=== PATIENT | female | born 1960 | race Caucasian/White ===

== ENCOUNTER 2023-12-23 19:02 | Emergency (ER) | payer MEDICARE, OTHER, SELFPAY ==
[2023-12-23 19:07] VITALS: BP 172/84; PULSE 93; TEMP 36.8; O2SAT 98; BMI 37.3
--- NOTE | 2023-12-23 19:19 | ED_ITS ---
HPI - Female Genitourinary General Chief complaint: Urogenital-Female Stated complaint: UTI Time Seen by Provider: 12/23/23 19:08 Source: patient Mode of arrival: walk-in Limitations: no limitations History of Present Illness HPI Narrative: 63-year-old female presents to the emergency department for dysuria and frequency and hematuria. It started about 3 hours ago. No back pain fever or vomiting. She has only had 2 UTIs and believes that she has another 1. Related Data Previous Rx's ?Medication ?Instructions ?Recorded cephalexin 500 mg capsule 500 mg PO TID 7 days #21 caps 12/23/23 phenazopyridine 200 mg tablet 200 mg PO Q8H PRN pain #15 tabs 12/23/23 (Pyridium) Allergies Allergy/AdvReac Type Severity Reaction Status Date / Time codeine AdvReac Severe Difficulty Verified 12/23/23 19:13 Breathing Iodinated Contrast Media AdvReac Intermediate Rash Verified 12/23/23 19:13 cefaclor [From Ceclor] AdvReac Mild Rash Verified 12/23/23 19:13 Review of Systems ROS Narrative A ten point review of systems is negative except as noted above. Exam Narrative Exam Narrative: Nurses note and vital signs reviewed and patient is not hypoxic. General: The patient appears well and in no apparent distress. Patient is resting comfortably on cart. Skin: Warm, dry, no pallor noted. There is no rash noted. Head: Normocephalic, atraumatic Eye: Normal conjunctiva, no drainage Ears, Nose, Mouth, and Throat: oral mucosa is moist. Nares patent. Cardiovascular: Regular Rate and Rhythm Respiratory: Patient is in no distress, no accessory muscle use, lungs are clear to auscultation, no wheezing, rales or rhonchi Back: non-tender, no CVA tenderness bilaterally to percussion. GI: Soft and nontender Musculoskeletal: The patient has no evidence of calf tenderness, no pitting edema, symmetrical pulses noted bilaterally Neurological: Awake and alert Psychiatric: Cooperative Constitutional Vital Signs, click to edit/add: Last Vital Signs Temp 98.2 F 12/23/23 19:07 Pulse 93 H 12/23/23 19:07 Resp 20 12/23/23 19:07 BP 172/84 H 12/23/23 19:07 Pulse Ox 98 12/23/23 19:07 O2 Del Method Room Air 04/28/24 19:07 Course Vital Signs Vital signs: Vital Signs Temperature 98.2 F 12/23/23 19:07 Pulse Rate 93 H 12/23/23 19:07 Respiratory Rate 20 12/23/23 19:07 Blood Pressure 172/84 H 12/23/23 19:07 Pulse Oximetry 98 12/23/23 19:07 Oxygen Delivery Method Room Air 12/23/23 19:07 Temperature 98.2 F 12/23/23 19:07 Pulse Rate 93 H 12/23/23 19:07 Respiratory Rate 20 12/23/23 19:07 Blood Pressure 172/84 H 12/23/23 19:07 Pulse Oximetry 98 12/23/23 19:07 Oxygen Delivery Method Room Air 12/23/23 19:07 MDM - Female Genitourinary MDM Narrative Medical decision making narrative: UTI is identified and she started on Keflex and Pyridium here and prescribed the same. Treatment diagnosis and follow-up were discussed with the patient. I have no clinical suspicion of pyelonephritis. Differential Diagnosis Differential diagnosis: Likely urinary tract infection and other (Hematuria, pyelonephritis) Lab Data Attestation: I reviewed the patient's lab results. Labs: Lab Results 12/23/23 Range/Units 19:25 Urine Color Dk. orange (YELLOW) Urine Clarity Clear (CLEAR) Urine pH 5.5 (5.0-9.0) Ur Specific [place] >=1.030 A (1.005-1.025) Urine Protein 100 A (NEG/TRACE) mg/dL Urine Glucose (UA) Negative (NEGATIVE) mg/dL Urine Ketones Negative (NEGATIVE) mg/dL Urine Occult Blood Large A (NEGATIVE) Urine Nitrite Positive A (NEGATIVE) Urine Bilirubin Negative (NEGATIVE) Urine Urobilinogen 1.0 (0.2-1.0) EU/dL Ur Leukocyte Esterase Small A (NEGATIVE) Urine RBC >100 A (0-2) #/HPF Urine WBC 5-10 A (NONE SEEN) #/HPF Ur Squamous Epith Cells Few A (NONE/RARE) #/LPF Urine Crystals None seen (None Seen) #/HPF Urine Bacteria Trace A (NONE SEEN) #/HPF Urine Casts None seen (NONE SEEN) #/LPF Urine Mucus None seen (NONE SEEN) Ur Culture Indicated? No Discharge Plan Discharge Stand Alone Forms: Portal Instructions Chief Complaint: Urogenital-Female Clinical Impression: Urinary tract infection Patient Disposition: Home, Self-Care Time of Disposition Decision: 19:44 Condition: Good Mode of Transportation: Private Vehicle Prescriptions / Home Meds: New cephalexin 500 mg capsule 500 mg PO TID 7 Days Qty: 21 0RF phenazopyridine [Pyridium] 200 mg tablet 200 mg PO Q8H PRN (Reason: pain) Qty: 15 0RF Print Language: Setswana Instructions: Urinary Tract Infection in Women (DC) Referrals: LISA JEAN [Primary Care Provider] - 1 week
[2023-12-23 19:32] LABS: Bilirubin Urine NEGATIVE (NEGATIVE); Blood Urine LARGE (NEGATIVE); Clarity Urine CLEAR (CLEAR); Color Urine DK. ORANGE (YELLOW); Glucose Urine UA NEGATIVE (NEGATIVE); Ketones Urine NEGATIVE (NEGATIVE); Leukocyte Esterase Urine SMALL (NEGATIVE); Nitrite Urine POSITIVE (NEGATIVE); Protein Urine 100 mg/dL (NEG/TRACE); Specific Gravity Urine >=1.030 (1.005-1.025); pH Urine 5.5 (5.0-9.0)
[2023-12-23 19:36] LABS: Bacteria Urine TRACE #/HPF (NONE SEEN); Cast Seen? NONE SEEN #/LPF (NONE SEEN); Crystals Seen? None Seen #/HPF (None Seen); Mucus Urine NONE SEEN (NONE SEEN); RBC Urine >100 #/HPF (0-2); Squamous Epithelial Cell Urine FEW #/LPF (NONE/RARE); Urine Culture Indicated NO
[2023-12-23] MEDS: PHENAZOPYRIDINE 100 MG TABLET 200 MG PO (20:05)
[2023-12-23] MEDS: CEPHALEXIN 500 MG CAPSULE PO (20:05)
== END 2023-12-23 20:19 | disposition home or self-care (01) ==
PROVIDERS: Emergency Provider Emergency Medicine; PCP Family Medicine
DX: N39.0 Urinary tract infection, site not specified (principal)
CPT/HCPCS: 81001; 87086; 99284